=== PATIENT | male | born 2000 | race African-American/Black ===

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

== ENCOUNTER 2024-08-13 07:29 | Emergency (ER) | payer OTHER, MEDICAID ==
[~2024-08-13] VITALS: Ht 172.7 cm; Wt 61.2 kg
[2024-08-13 08:23] VITALS: BP 116/69; PULSE 73; RESP 16; TEMP 98.1; O2SAT 99
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
[2024-08-13] MEDS ORDERED: NAPR-746 PO (10:08)
[2024-08-13] MEDS ORDERED: METH-1181 PO (10:08)
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
== END 2024-08-13 10:17 | disposition home or self-care (01) ==
LOC: EDBD 07:29 → ER 07:29
DX: S09.8XXA Other specified injuries of head, initial encounter (principal); Z79.899 Other long term (current) drug therapy; M54.2 Cervicalgia; V49.40XA Driver injured in collision with unspecified motor vehicles in traffic accident, initial encounter; Y93.I9 Activity, other involving external motion; Y92.488 Other paved roadways as the place of occurrence of the external cause; Y99.8 Other external cause status
CPT/HCPCS: 70450; 72040

== ENCOUNTER 2025-02-01 07:14 | Emergency (ER) | payer OTHER, MEDICAID ==
[~2025-02-01] VITALS: Ht 167.6 cm; Wt 63.0 kg
[~2025-02-01 07:14] MED LIST changes: +METH-1181 PO; +NAPR-746 PO
[2025-02-01 07:22] VITALS: TEMP 98
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
[2025-02-01 07:25] VITALS: BP 121/79; PULSE 100; RESP 18; O2SAT 99
[2025-02-01] MEDS: MIDAZOLAM HCL 5 MG/ML-1ML VIAL IM ONE (07:32)
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
== END 2025-02-01 08:24 ==
LOC: EDBD 07:14 → EDUNIT# 07:14 → ER 07:14
DX: S09.8XXA Other specified injuries of head, initial encounter (principal); V89.2XXA Person injured in unspecified motor-vehicle accident, traffic, initial encounter; Y93.01 Activity, walking, marching and hiking; Y92.488 Other paved roadways as the place of occurrence of the external cause; Y99.8 Other external cause status
CPT/HCPCS: 70450; 96372; 99285; J2250